=== PATIENT | female | born 1975 | race Caucasian/White ===

== ENCOUNTER 2018-03-01 15:56 | Emergency (ER) | payer MEDICAID ==
[~2018-03-01] VITALS: Ht 154.9 cm; Wt 81.6 kg
[2018-03-01 16:00] VITALS: BP 131/91
[2018-03-01] MEDS: PHENAZOPYRIDINE 100 MG TAB PO ONE (16:26)
[2018-03-01 16:35] LABS: BILIRUBIN,URINE NEGATIVE (NEGATIVE); BLOOD, URINE 3+ (NEGATIVE); LEUKOCYTE ESTERASE ,URINE 1+ (NEGATIVE); NITRITE, URINE NEGATIVE (NEGATIVE); UGLUCOSE NEGATIVE (NEGATIVE)
[2018-03-01 16:37] LABS: APPEARANCE,URINE HAZY (CLEAR); COLOR,URINE YELLOW (YELLOW)
[2018-03-01 17:00] LABS: RBC,URINE 11-20 (MOD) /HPF (0-5); WBC,URINE 80-100 /HPF (0-5)
== END 2018-03-01 16:40 | disposition home or self-care (01) ==
LOC: MED 15:56
DX: N39.0 Urinary tract infection, site not specified (principal)
CPT/HCPCS: 81001; 81025; 87086; 87186; 99284

== ENCOUNTER 2022-02-09 16:02 | Emergency (ER) | payer MEDICAID ==
[~2022-02-09] VITALS: Ht 154.9 cm; Wt 97.7 kg
[2022-02-09 16:16] VITALS: BP 135/96
--- NOTE | 2022-02-09 16:19 | NUR ---
PT TAKEN TO [facility].
[2022-02-09] MEDS ORDERED: NAPR-54 PO (16:53)
[2022-02-09] MEDS ORDERED: ACET-10509 PO (16:54)
[2022-02-09 17:18] VITALS: BP 133/67
--- NOTE | 2022-02-09 17:19 | NUR ---
Patient discharged with v/s stable. Written and verbal after care instructions given and explained. Patient alert, oriented and verbalized understanding of instructions. Ambulatory with steady gait. All questions addressed prior to discharge. ID band removed. Patient advised to follow up with PMD. Rx of TYLENOL, NAPROSYN given. Patient educated on indication of medication including possible reaction and side effects. Opportunity to ask questions provided and answered.
== END 2022-02-09 17:19 | disposition home or self-care (01) ==
LOC: MED 16:02
DX: S63.91XA Sprain of unspecified part of right wrist and hand, initial encounter (principal); S43.401A Unspecified sprain of right shoulder joint, initial encounter; W01.0XXA Fall on same level from slipping, tripping and stumbling without subsequent striking against object, initial encounter; Y93.E8 Activity, other personal hygiene; Y92.89 Other specified places as the place of occurrence of the external cause; Y99.8 Other external cause status
CPT/HCPCS: 73030; 73130; 99284

== ENCOUNTER 2023-10-04 12:25 | Emergency (ER) | payer MEDICAID, OTHER ==
[~2023-10-04] VITALS: Ht 154.9 cm; Wt 87.1 kg
[~2023-10-04 12:25] MED LIST: ACET-10509 PO; NAPR-54 PO
[2023-10-04 12:37] VITALS: BP 127/94; PULSE 91; RESP 17; TEMP 98.1; O2SAT 98
[2023-10-04] MEDS: ONDANSETRON 4 MG ODT PO ONE (13:06)
[2023-10-04] MEDS: ONDANSETRON 4 MG/2 ML VIAL IVP ONE (13:06)
[2023-10-04] MEDS: NACL 0.9% 1,000 ML IV ONE (13:07)
[2023-10-04 13:08] LABS: BASOPHILS % (AUTO) 0.2 % (0.0-2.0); EOSINOPHILS % (AUTO) 0.1 % (0.0-4.0); HEMATOCRIT 40.4 % (36-48); LYMPHOCYTES # (AUTO) 0.2 K/uL (2.5-16.5); LYMPHOCYTES % (AUTO) 1.3 % (20.5-51.1); MEAN CORPUSCULAR HEMOGLOBIN 31 pg (27-31); MEAN CORPUSCULAR HGB CONC 35 g/dL (33-37); MEAN CORPUSCULAR VOLUME 88.1 fL (80-94); MONOCYTES # (AUTO) 0.3 K/uL (0.8-1.0); MONOCYTES % (AUTO) 1.9 % (1.7-9.3); NEUTROPHILS # (AUTO) 17.3 K/uL (1.8-7.7); NEUTROPHILS % (AUTO) 96.5 % (42.2-75.2); PLATELET COUNT (AUTO) 237 K/uL (140-450); RED BLOOD CELL COUNT(AUTO) 4.59 MIL/uL (4.20-5.40); RED CELL DISTRIBUTION WIDTH 13.5 % (11.6-13.7); WHITE BLOOD COUNT (AUTO) 17.9 K/uL (4.8-10.8)
[2023-10-04 13:34] LABS: APPEARANCE,URINE SL CLOUDY (CLEAR); BILIRUBIN,URINE NEGATIVE (NEGATIVE); BLOOD, URINE 2+ (NEGATIVE); COLOR,URINE YELLOW (YELLOW); LEUKOCYTE ESTERASE ,URINE TRACE (NEGATIVE); NITRITE, URINE NEGATIVE (NEGATIVE); PROTEIN,URINE NEGATIVE (NEGATIVE); UGLUCOSE NEGATIVE (NEGATIVE); UROBILINOGEN,URINE 0.2 EU/dL (0.2 - 1)
[2023-10-04 13:35] LABS: ALBUMIN 3.3 g/dL (3.4-5.0); ANION GAP 11.5 (8-16); CALCIUM 8.8 mg/dL (8.5-10.1); CARBON DIOXIDE 26.5 mmol/L (21-32); CREATININE 0.8 mg/dL (0.6-1.3); TOTAL BILIRUBIN 0.7 mg/dL (0.0-1.0); TOTAL PROTEIN, SERUM 8.3 g/dL (6.4-8.2)
[2023-10-04 13:37] LABS: BACTERIA,URINE 0-2 /HPF (None Seen); MUCUS,URINE None Seen /LPF (None Seen); SQUAMOUS EPITHELIAL CELL,UR 0-3 (FEW) /LPF (0-3 (FEW)); WBC,URINE 0-5 /HPF (0-5)
[2023-10-04] MEDS ORDERED: ONDA-188 SL (14:07)
[2023-10-04] MEDS: KETOROLAC 30 MG/ML VIAL IVP ONE (14:48)
[2023-10-04 15:09] VITALS: BP 112/59; PULSE 84; RESP 20; TEMP 98.2; O2SAT 98
== END 2023-10-04 14:59 | disposition home or self-care (01) ==
LOC: MED 12:25
DX: R11.2 Nausea with vomiting, unspecified (principal); R19.7 Diarrhea, unspecified; Z79.899 Other long term (current) drug therapy; Z79.1 Long term (current) use of non-steroidal anti-inflammatories (NSAID)
CPT/HCPCS: 36415; 80053; 81001; 83690; 85025; 96361; 96374; 96375; 99284; J1885; J2405; J7030; Q0162

== ENCOUNTER 2024-02-08 07:01 | Emergency (ER) | payer OTHER ==
[~2024-02-08] VITALS: Ht 154.9 cm; Wt 90.7 kg
[~2024-02-08 07:01] MED LIST changes: +NAPR-337 PO; -NAPR-54 PO; +ONDA-188 SL
[2024-02-08 07:28] VITALS: BP 133/89; PULSE 66; RESP 18; TEMP 97.6; O2SAT 97
[2024-02-08] MEDS: ACETAMINOPHEN 325 MG TAB PO ONE (08:43)
[2024-02-08] MEDS ORDERED: NAPR-1704 PO (09:14)
[2024-02-08 09:40] VITALS: BP 134/74; PULSE 68; RESP 18; TEMP 97.6; O2SAT 99
== END 2024-02-08 09:40 | disposition home or self-care (01) ==
LOC: MED 07:01
DX: S89.92XA Unspecified injury of left lower leg, initial encounter (principal); J45.909 Unspecified asthma, uncomplicated; Z90.49 Acquired absence of other specified parts of digestive tract; Z79.1 Long term (current) use of non-steroidal anti-inflammatories (NSAID); Z79.899 Other long term (current) drug therapy; Z91.040 Latex allergy status; X58.XXXA Exposure to other specified factors, initial encounter; Y93.89 Activity, other specified; Y92.89 Other specified places as the place of occurrence of the external cause; Y99.8 Other external cause status
CPT/HCPCS: 73562; 81025; 99283